=== PATIENT | female | born 1990 | race Caucasian/White ===

== ENCOUNTER 2021-06-19 17:35 | Emergency (ER) | payer OTHER ==
[~2021-06-19] VITALS: Ht 160 cm; Wt 63.5 kg
[2021-06-19] MEDS ORDERED: BIRTH CONTROL TABS (17:50)
[2021-06-19 19:21] LABS: URINE BILIRUBIN NEGATIVE (Negative); URINE BLOOD TRACE (Negative); URINE CLARITY CLEAR; URINE COLOR YELLOW; URINE GLUCOSE-RANDOM NEGATIVE (Negative); URINE KETONES NEGATIVE (Negative); URINE LEUKOCYTES-REFLEX NEGATIVE (Negative); URINE NITRITE-REFLEX NEGATIVE (Negative); URINE PROTEIN NEGATIVE (Negative); URINE SPECIFIC GRAVITY 1.015 (1.005-1.030); URINE UROBILINOGEN 0.2 E.U./dl (0.2-1.0)
[2021-06-19 20:49] LABS: HEMATOCRIT 39.3 % (37.0-47.0); HEMOGLOBIN 13.3 gm/dL (12.0-15.0); MCH 30.1 pg (26.0-34.0); MCHC 33.8 g/dL (28.0-37.0); MPV 7.8 fl. (7.2-11.1); RBC 4.41 mil/uL (4.20-5.00); RDW-CV 12.3 % (10.5-14.5); WBC 7.8 thou/uL (4.0-11.0)
[2021-06-19 20:53] LABS: CALCIUM 8.8 mg/dL (8.5-10.1); CREATININE 0.7 mg/dL (0.6-1.3); POTASSIUM 3.7 mmol/L (3.5-5.1)
[2021-06-19] MEDS ORDERED: NAPROSYN500 MG PO ×3 (21:01→21:39)
[2021-06-19] MEDS ORDERED: APAP W/CODEINE1 TA2 PO ×3 (21:01→21:39)
[2021-06-19 21:35] VITALS: BP 127/65
== END 2021-06-19 21:35 | disposition home or self-care (01) ==
LOC: M.ERS 17:35
PROVIDERS: Physician Assistant
DX: N93.8 Other specified abnormal uterine and vaginal bleeding (principal); R10.30 Lower abdominal pain, unspecified; R53.83 Other fatigue; Z79.899 Other long term (current) drug therapy; Z88.1 Allergy status to other antibiotic agents; Z88.2 Allergy status to sulfonamides